=== PATIENT | male | born 1930 | race Caucasian/White ===

== ENCOUNTER 2017-11-10 17:10 | Inpatient (IN) ==
[2017-11-11] MEDS ORDERED: ONDANSETRON 4 MG/2 ML VIAL IV PRN (00:43)
[2017-11-11] MEDS ORDERED: ACETAMINOPHEN 325 MG TABLET PO PRN (00:43)
[2017-11-11] MEDS ORDERED: SODIUM CHLORIDE 0.9% 1,000 ML IV SCH (01:00)
[2017-11-11 05:03] LABS: Basophils # 0.1 10*3/uL (0.0-0.2); Basophils % 0.5 % (0.0-0.8); Eosinophils # 0.1 10*3/uL (0.0-0.87); Eosinophils % 1.2 % (0.00-10.9); Hematocrit 24.5 VOL% (42.0-52.0); Hemoglobin 7.5 GM/DL (14.0-18.0); Immature Granulocytes % 0.6 %; Immature Granulocytes Absolute 0.06 #; Lymphocytes # 0.8 10*3/uL (1.4-4.0); Lymphocytes % 8.7 % (21.2-54.2); Mean Corpuscular HGB Conc 30.6 GM/DL (32-36); Mean Corpuscular Hemoglobin 27 PG (27-34); Mean Corpuscular Volume 87.8 FL (87-102); Mean Platelet Volume 10.5 FL (9.6-12.0); Monocytes # 0.8 10*3/uL (0.11-0.8); Monocytes % 8.5 % (1.7-12.7); Neutrophils # 7.8 10*3/uL (1.4-7.4); Neutrophils % 80.5 % (38.7-73.9); Platelet Count 188 T/CUMM (130-400); Red Blood Count 2.79 MC/CUMM (3.8-5.5); White Blood Count 9.7 T/CUMM (4-12)
[2017-11-11 05:31] LABS: Albumin 2.4 G/DL (3.4-5.0); Bilirubin,Total 0.7 MG/DL (0.2-1.0); Calcium 8.2 MG/DL (8.5-10.1); Osmolality,Calculated 278.7 MOS/KG (273-304); Potassium 3.6 MMOL/L (3.5-5.1); Total Protein 5.4 G/DL (6.4-8.3)
[2017-11-11] MEDS: LEVOTHYROXINE 175 MCG TABLET PO SCH (06:36)
[2017-11-11] MEDS ORDERED: SODIUM CHLORIDE 0.9% 1,000 ML IV PRN ×2 (08:41→09:12)
[2017-11-11] MEDS ORDERED: CHROMIUM PICOLINATE 200 MCG PO SCH (09:00)
[2017-11-11] MEDS ORDERED: GARLIC PO SCH (09:00)
[2017-11-11] MEDS: DIGOXIN 0.25 MG TABLET PO SCH (09:54)
[2017-11-11] MEDS: CHOLECALCIFEROL 1,000 UNIT TABLET PO SCH (09:54)
[2017-11-11] MEDS: FINASTERIDE 5 MG TABLET PO SCH (09:54)
[2017-11-11] MEDS: MULTIVITAMIN (CENTRUM) TABLET PO SCH (09:54)
[2017-11-11] MEDS: MAGNESIUM OXIDE 400 MG TABLET PO SCH (09:54)
[2017-11-11] MEDS: COENZYME Q10 100 MG CAPSULE PO SCH (09:55)
[2017-11-11] MEDS: OMEGA 3 ACID ETHYL ESTERS 1 GM CAPSULE PO SCH (09:55)
[2017-11-11] MEDS: WARFARIN 7.5 MG TABLET PO SCH (18:10)
[2017-11-11] MEDS: COLLAGENASE OINT 30 GM TUBE TOP SCH (19:00)
[2017-11-11] MEDS: SODIUM HYPOCHLORITE 0.25% IRRIG 473 ML BOTTLE TOP SCH (19:00)
[2017-11-11] MEDS: ASPIRIN EC 81 MG TABLET PO SCH (21:45)
[2017-11-12] MEDS: LEVOTHYROXINE 175 MCG TABLET PO SCH (05:39)
[2017-11-12 06:18] LABS: Hemoglobin 9.6 GM/DL (14.0-18.0)
[2017-11-12 08:05] LABS: Basophils # 0.1 10*3/uL (0.0-0.2); Basophils % 0.4 % (0.0-0.8); Eosinophils # 0.1 10*3/uL (0.0-0.87); Eosinophils % 0.6 % (0.00-10.9); Hematocrit 30.4 VOL% (42.0-52.0); Hemoglobin 9.5 GM/DL (14.0-18.0); Immature Granulocytes % 0.6 %; Immature Granulocytes Absolute 0.07 #; Mean Corpuscular HGB Conc 31.3 GM/DL (32-36); Mean Corpuscular Hemoglobin 28 PG (27-34); Mean Corpuscular Volume 88.1 FL (87-102); Mean Platelet Volume 10.8 FL (9.6-12.0); Monocytes % 8.1 % (1.7-12.7); Neutrophils # 10.1 10*3/uL (1.4-7.4); Neutrophils % 82.3 % (38.7-73.9); Platelet Count 202 T/CUMM (130-400); Red Blood Count 3.45 MC/CUMM (3.8-5.5); Red Cell Distribution Width 15.9 % (9.3-17.3); White Blood Count 12.2 T/CUMM (4-12)
[2017-11-12] MEDS: DIGOXIN 0.25 MG TABLET PO SCH (09:46)
[2017-11-12] MEDS: MAGNESIUM OXIDE 400 MG TABLET PO SCH (09:46)
[2017-11-12] MEDS: MULTIVITAMIN (CENTRUM) TABLET PO SCH (09:46)
[2017-11-12] MEDS: CHOLECALCIFEROL 1,000 UNIT TABLET PO SCH (09:46)
[2017-11-12] MEDS: FINASTERIDE 5 MG TABLET PO SCH ×2 (09:46→09:47)
[2017-11-12] MEDS: COENZYME Q10 100 MG CAPSULE PO SCH (09:46)
[2017-11-12] MEDS: OMEGA 3 ACID ETHYL ESTERS 1 GM CAPSULE PO SCH (09:46)
[2017-11-12] MEDS: COLLAGENASE OINT 30 GM TUBE TOP SCH (13:51)
[2017-11-12] MEDS: SODIUM HYPOCHLORITE 0.25% IRRIG 473 ML BOTTLE TOP SCH (13:51)
[2017-11-12] MEDS ORDERED: WARFARIN 5 MG TABLET PO SCH (18:00)
[2017-11-12] MEDS: ASPIRIN EC 81 MG TABLET PO SCH (20:43)
[2017-11-13 04:19] LABS: Basophils % 0.2 % (0.0-0.8); Eosinophils # 0.2 10*3/uL (0.0-0.87); Eosinophils % 1.5 % (0.00-10.9); Hematocrit 30.3 VOL% (42.0-52.0); Hemoglobin 9.7 GM/DL (14.0-18.0); Immature Granulocytes % 0.4 %; Immature Granulocytes Absolute 0.04 #; Lymphocytes # 0.6 10*3/uL (1.4-4.0); Lymphocytes % 5.2 % (21.2-54.2); Mean Corpuscular Hemoglobin 28 PG (27-34); Mean Corpuscular Volume 85.8 FL (87-102); Mean Platelet Volume 10.5 FL (9.6-12.0); Monocytes # 0.6 10*3/uL (0.11-0.8); Neutrophils # 9.2 10*3/uL (1.4-7.4); Neutrophils % 86.7 % (38.7-73.9); Platelet Count 183 T/CUMM (130-400); Red Blood Count 3.53 MC/CUMM (3.8-5.5); White Blood Count 10.6 T/CUMM (4-12)
[2017-11-13] MEDS: LEVOTHYROXINE 175 MCG TABLET PO SCH (05:49)
[2017-11-13] MEDS ORDERED: DEXAMETHASONE INJ 20 MG in SODIUM CHLORIDE 0.9% 50 ML IV SCH (09:00)
[2017-11-13] MEDS ORDERED: DEXAMETHASONE 10 MG/1 ML VIAL IV SCH (09:00)
[2017-11-13] MEDS: COENZYME Q10 100 MG CAPSULE PO SCH (09:33)
[2017-11-13] MEDS: OMEGA 3 ACID ETHYL ESTERS 1 GM CAPSULE PO SCH (09:33)
[2017-11-13] MEDS: CHOLECALCIFEROL 1,000 UNIT TABLET PO SCH (09:34)
[2017-11-13] MEDS: MULTIVITAMIN (CENTRUM) TABLET PO SCH (09:34)
[2017-11-13] MEDS: DIGOXIN 0.25 MG TABLET PO SCH (09:34)
[2017-11-13] MEDS: MAGNESIUM OXIDE 400 MG TABLET PO SCH (09:35)
[2017-11-13] MEDS: FINASTERIDE 5 MG TABLET PO SCH (09:35)
[2017-11-13] MEDS: SODIUM HYPOCHLORITE 0.25% IRRIG 473 ML BOTTLE TOP SCH (12:53)
[2017-11-13] MEDS: COLLAGENASE OINT 30 GM TUBE TOP SCH (12:53)
[2017-11-13 14:15] LABS: INR 2.4
[2017-11-13] MEDS: WARFARIN 7.5 MG TABLET PO SCH (18:09)
[2017-11-13] MEDS: ASPIRIN EC 81 MG TABLET PO SCH (21:36)
[2017-11-14 05:26] LABS: Basophils % 0.2 % (0.0-0.8); Eosinophils # 0.1 10*3/uL (0.0-0.87); Eosinophils % 0.6 % (0.00-10.9); Hemoglobin 8.7 GM/DL (14.0-18.0); Immature Granulocytes % 0.5 %; Immature Granulocytes Absolute 0.06 #; Lymphocytes # 0.8 10*3/uL (1.4-4.0); Lymphocytes % 6.1 % (21.2-54.2); Mean Corpuscular Hemoglobin 27 PG (27-34); Mean Corpuscular Volume 89.2 FL (87-102); Mean Platelet Volume 10.3 FL (9.6-12.0); Monocytes # 0.9 10*3/uL (0.11-0.8); Monocytes % 7.2 % (1.7-12.7); Neutrophils # 10.8 10*3/uL (1.4-7.4); Neutrophils % 85.4 % (38.7-73.9); Platelet Count 188 T/CUMM (130-400); Red Blood Count 3.25 MC/CUMM (3.8-5.5); Red Cell Distribution Width 15.9 % (9.3-17.3); White Blood Count 12.6 T/CUMM (4-12)
[2017-11-14 06:07] LABS: INR 2.6
[2017-11-14 06:16] LABS: PT Patient Result 26.9 SECS
[2017-11-14] MEDS: LEVOTHYROXINE 175 MCG TABLET PO SCH (06:20)
[2017-11-14 06:24] LABS: Calcium 7.9 MG/DL (8.5-10.1); Osmolality,Calculated 279.7 MOS/KG (273-304); Potassium 4.2 MMOL/L (3.5-5.1)
[2017-11-14 06:27] LABS: Albumin 2.1 G/DL (3.4-5.0); Bilirubin,Total 1.6 MG/DL (0.2-1.0); Calcium 8.1 MG/DL (8.5-10.1); Osmolality,Calculated 280.5 MOS/KG (273-304); Potassium 4.2 MMOL/L (3.5-5.1); Total Protein 5.4 G/DL (6.4-8.3)
[2017-11-14 06:34] LABS: Risk Ratio 2.64; VLDL CHOLESTEROL 17.6 MG/DL
[2017-11-14] MEDS: OMEGA 3 ACID ETHYL ESTERS 1 GM CAPSULE PO SCH (08:51)
[2017-11-14] MEDS: MULTIVITAMIN (CENTRUM) TABLET PO SCH (08:51)
[2017-11-14] MEDS: CHOLECALCIFEROL 1,000 UNIT TABLET PO SCH (08:52)
[2017-11-14] MEDS: MAGNESIUM OXIDE 400 MG TABLET PO SCH (08:52)
[2017-11-14] MEDS: DIGOXIN 0.25 MG TABLET PO SCH (08:52)
[2017-11-14] MEDS: COENZYME Q10 100 MG CAPSULE PO SCH (08:53)
[2017-11-14] MEDS: SODIUM HYPOCHLORITE 0.25% IRRIG 473 ML BOTTLE TOP SCH (08:56)
[2017-11-14] MEDS: COLLAGENASE OINT 30 GM TUBE TOP SCH (08:56)
[2017-11-14] MEDS: FINASTERIDE 5 MG TABLET PO SCH (09:00)
[2017-11-14 12:41] VITALS: BP 127/76
== END 2017-11-14 14:35 | disposition home health service (06) | DRG 641 ==
LOC: SUATTDRO 19:34 → N.4E 19:34
PROVIDERS: ADMIT Internal Medicine; ATTEND Specialist

== ENCOUNTER 2017-11-16 18:24 | Inpatient (IN) ==
[2017-11-20 00:52] VITALS: BP 110/83
== END 2017-11-20 00:37 | disposition expired | DRG 871 ==
LOC: EDUNIT# → EDBD → N.ED 18:24 → SUATTDRO 20:48 → N.EDINP 20:48 → N.2E 21:16
PROVIDERS: ADMIT Internal Medicine; ATTEND Internal Medicine